=== PATIENT | male | born 1955 ===

== ENCOUNTER 2018-04-26 17:24 | Emergency (ER) | payer BC ==
[2018-04-26 17:45] VITALS: TEMP 98.4; O2SAT 98; BMI 21.7
[2018-04-26] MEDS ORDERED: Sodium Chloride 0.9% 1,000 ML IV STA (18:11)
--- NOTE | 2018-04-26 18:23 | ED PDOC ---
HPI: Abdomen Time Seen by Provider: 04/26/18 17:50 Chief Complaint (Nursing): Abdominal Pain Chief Complaint (Provider): Abdominal Pain, Diarrhea History Per: Patient History/Exam Limitations: no limitations Onset/Duration Of Symptoms: Days (x4) Outside of [place] travel?: No Current Symptoms Are (Timing): Still Present Additional Complaint(s): 63 year old male with no pmhx presents to the ED for evaluation of diffuse abdominal pain and watery, sometimes black diarrhea for the past four days associated with nausea. Patient also reports having intermittent rectal bleeding for the past year. He notes having multiple colonoscopies, but cannot remember the results as it was "years ago." Denies fever, hematochezia, bright red blood, vomiting, and recent travel. PMD: none provided Past Medical History Reviewed: Historical Data, Nursing Documentation, Vital Signs Vital Signs: Last Vital Signs Temp 98.4 F 04/26/18 17:44 Pulse 104 H 04/26/18 17:44 Resp 16 04/26/18 17:44 BP 131/74 04/26/18 17:44 Pulse Ox 98 04/26/18 17:44 - Medical History PMH: No Chronic Diseases - Surgical History Other surgeries: several colonoscopies - Family History Family History: States: Unknown Family Hx - Social History Current smoker - smoking cessation education provided: No Alcohol: None Drugs: Denies - Allergies Allergies/Adverse Reactions: Allergies Allergy/AdvReac Type Severity Reaction Status Date / Time No Known Allergies Allergy Verified 04/26/18 18:10 Review of Systems ROS Statement: Except As Marked, All Systems Reviewed And Found Negative Constitutional: Negative for: Fever Gastrointestinal: Positive for: Nausea, Abdominal Pain (diffuse), Diarrhea (watery and sometimes black), Other (intermittent rectal bleeding). Negative for: Vomiting, Hematochezia Physical Exam - Reviewed Nursing Documentation Reviewed: Yes Vital Signs Reviewed: Yes - Physical Exam Appears: Positive for: No Acute Distress Head Exam: Positive for: ATRAUMATIC, NORMOCEPHALIC Skin: Positive for: Normal Color, Warm Eye Exam: Positive for: Normal appearance ENT: Positive for: Normal ENT Inspection Neck: Positive for: Normal, Painless ROM, Supple Cardiovascular/Chest: Positive for: Regular Rate, Rhythm Respiratory: Positive for: Normal Breath Sounds. Negative for: Respiratory Distress Gastrointestinal/Abdominal: Positive for: Soft, Tenderness (tenderness to palpation diffusely ). Negative for: Guarding, Rebound Back: Positive for: Normal Inspection Rectal: Positive for: Normal Exam, Other (stool color: light brown) Extremity: Positive for: Normal ROM Neurologic/Psych: Positive for: Alert, Oriented (x3) Comments: Rectal Marketing Assistant Manager: GERARD Merrill - ECG O2 Sat by Pulse Oximetry: 98 (RA) Pulse Ox Interpretation: Normal Medical Decision Making Medical Decision Making: A/P: 63 year old male presenting with diffuse abdominal pain and diarrhea --Symptoms currently non-specific and may represent PUD, gastritis, diverticular disease, amongst others not listed. Initial Plan: --CT abd/pelvis PO&IV contrast --Bilirubin, direct --CMP --Lipase --CBC with differential --Normal saline IV --Protonix Inj 40mg IVP --Zofran 4mg IVP --Occult blood, stool --Urinalysis 1900 Patient care endorse to Dr. Grace pending workup and reevaluation. Scribe Attestation: Documented by Helen Drake, acting as a scribe for Joaquin Muniz MD. Provider Scribe Attestation: All medical record entries made by the Scribe were at my direction and personally dictated by me. I have reviewed the chart and agree that the record accurately reflects my personal performance of the history, physical exam, medical decision making, and the department course for this patient. I have also personally directed, reviewed, and agree with the discharge instructions and disposition. Disposition - Clinical Impression Clinical Impression: Diarrhea - Patient ED Disposition Is Patient to be Admitted: Transfer of Care - Disposition Disposition: Transfer of Care Disposition Time: 19:00 Condition: STABLE Forms: [facility] [employer] [facility] ([place]) Patient Signed Over To: Erlinda Grace Handoff Comments: pending workup and re-eval
--- NOTE | 2018-04-26 19:10 | ED PDOC ---
- Laboratory Results Result Diagrams: 04/26/18 19:20 04/26/18 19:20 - ECG O2 Sat by Pulse Oximetry: 98 (RA) Medical Decision Making Medical Decision Makin Patient care endorsed from Dr. Muniz to this provider pending workup and reevaluation. 0040 Pt with improved pain and diarrhea. CT shows colitis. Pt encouraged to follow up with primary medical doctor and to follow up with prop and scenery maker for colonoscopy. return parameters discussed. -------- --------- Scribe Attestation: Documented by Helen Drake, acting as a scribe for Erlinda Grace MD. Provider Scribe Attestation: All medical record entries made by the Scribe were at my direction and personally dictated by me. I have reviewed the chart and agree that the record accurately reflects my personal performance of the history, physical exam, medical decision making, and the department course for this patient. I have also personally directed, reviewed, and agree with the discharge instructions and d isposition. Disposition - Clinical Impression Clinical Impression: Diarrhea - POA Present On Arrival: None - Disposition Referrals: Edgardo Viveros MD [Staff Provider] - Disposition: Routine/Home Disposition Time: 00:40 Condition: STABLE Additional Instructions: Increase water intake while diarrhea persists to prevent dehydration. Follow up with primary medical doctor and the prop and scenery maker. Return to the emergency department if symptoms worsen or if new symptoms develop. Instructions: Diarrhea and Traveler's Diarrhea, Adult (DC) Forms: [employer] (Welsh), [facility] ED School/Work Excuse Print Language: SERBIAN
[2018-04-26 19:53] LABS: BASO % 0.1 % (0.0-2.0); EOS % 0.1 % (0.0-4.0); HEMOGLOBIN 12.2 g/dL (12.0-18.0); LYMPH # 0.4 K/uL (1.0-4.3); MEAN CORPUSCULAR HEMOGLOBIN 27.5 pg (27.0-31.0); MEAN CORPUSCULAR HGB CONC 33.5 g/dL (33.0-37.0); MEAN PLATELET VOLUME 8.6 fl (7.2-11.7); MONO # 0.5 K/uL (0.0-0.8); MONO % 12.3 % (0.0-10.0); NEUT # 3.1 K/uL (1.8-7.0); NEUT % 77.5 % (50.0-75.0); RBC 4.43 Mil/uL (4.40-5.90); RED CELL DISTRIBUTION WIDTH 17.9 % (11.5-14.5)
[2018-04-26 20:01] LABS: ALBUMIN 3.9 g/dL (3.5-5.0); ALT/SGPT 26 U/L (21-72); AST/SGOT 37 U/L (17-59); BILIRUBIN,DIRECT 0.1 mg/ml (0.0-0.4); BLOOD UREA NITROGEN 22 mg/dl (9-20); GFR NON-AFRICAN AMERICAN > 60; LIPASE 30 U/L (23-300)
[2018-04-26] MEDS ORDERED: Iohexol 240 (50 ml) ONE (20:03)
[2018-04-26] MEDS ORDERED: Iohexol 240 (50 ml) PO ONE (20:06)
[2018-04-26 21:48] LABS: SQUAMOUS EPITHIAL < 1 /hpf (0-5); URINE BILIRUBIN NEGATIVE (NEGATIVE); URINE BLOOD LARGE (NEGATIVE); URINE CLARITY SLIGHTY-CLOUDY (Clear); URINE COLOR YELLOW (YELLOW); URINE GLUCOSE (UA) NEG (NEGATIVE); URINE HYALINE CAST 0-2 /hpf (0-2); URINE LEUKOCYTE ESTERASE NEG Leu/uL (Negative); URINE PROTEIN 30 mg/dL (NEGATIVE); URINE UROBILINOGEN 0.2-1.0 mg/dL (0.2-1.0)
[2018-04-26] MEDS ORDERED: Sodium Chloride 0.9% 50 ML IV ONE (22:58)
[2018-04-26] MEDS ORDERED: Iohexol 300 100 ML IJ ONE (22:58)
[2018-04-27 00:54] VITALS: BP 118/69; PULSE 89; RESP 18
--- NOTE | 2018-04-27 15:06 | CT ---
Date of service: 2018-04-26 23:06:51 PROCEDURE: CT Abdomen and Pelvis HISTORY: Diffuse abdominal pain and rectal bleeding. COMPARISON: None. TECHNIQUE: Contiguous axial images of the abdomen and pelvis. Oral contrast was administered. No IV contrast given. Coronal and Sagittal reformats generated. Radiation dose: Total exam DLP = 207.92 mGy-cm. This CT exam was performed using one or more of the following dose reduction techniques: Automated exposure control, adjustment of the mA and/or kV according to patient size, and/or use of iterative reconstruction technique. FINDINGS: LOWER THORAX: Nodular scarring seen in the right posterolateral sulcus extending to the pleural surface with some linear scarring seen slightly more anteriorly. Follow-up CT scan at 3 month interval could be performed to assess stability. Centrilobular emphysematous changes are present. There is a small calcified granuloma also noted in the anterior aspect right lower lung field near the major fissure. Minimal linear scarring also present in the middle lobe region. Heart size within range of normal. No significant pericardial effusion. There is a tiny hiatal hernia. LIVER: Liver exhibits normal size. Mild diffuse fatty hepatic infiltration felt be present. No obvious hepatic mass collection or calcification. GALLBLADDER AND BILE DUCTS: Gallbladder is physiologically distended. No evidence of intraluminal gallbladder calculi.. PANCREAS: Unremarkable. No mass. No ductal dilatation. SPLEEN: Spleen exhibits normal size and attenuation pattern without masses collections or calcifications.. ADRENALS: No obvious adrenal lesions.. KIDNEYS AND URETERS: Kidneys demonstrate symmetric nephrograms. No evidence of nephrolithiasis or hydronephrosis. BLADDER: Urinary bladder is in physiologically distended. No evidence of intraluminal urinary bladder calculi. REPRODUCTIVE: Prostate gland measures approximately 3.5 cm in transverse dimension with prostatic calcifications. APPENDIX: Normal retrocecal appendix. BOWEL: Evaluation of bowel is limited due to incomplete opacification. The stomach is incompletely distended with slight thick-walled appearance. There is mild wall thickening of the distal ileum possibly representing a nonspecific ileitis in conjunction with wall thickening of the most of the colon consistent with ileitis and colitis. Rule out inflammatory versus infectious etiologies. The remaining visualized loops of small bowel exhibit relatively normal contour and caliber. No evidence of acute mechanical small bowel obstruction with oral contrast material extending to the level of the rectum. Possible rectal wall thickening. Consider follow-up of colonoscopy following treatment PERITONEUM: Unremarkable. No fluid collection. No free air. LYMPH NODES: Unremarkable. No enlarged lymph nodes. VASCULATURE: Unremarkable. No aortic aneurysm. Mild aortic atherosclerotic calcification or mural plaque present. BONES: No fracture or destructive lesion. OTHER FINDINGS: None. IMPRESSION: Findings are consistent with colitis involving most of the colon and apparent wall thickening of the terminal ileum. Findings could represent inflammatory ileitis/colitis however rule out infectious etiologies. Mild fatty infiltration.
== END 2018-04-27 00:55 | disposition home or self-care (01) ==
LOC: H.ER 17:24
DX: R19.7 Diarrhea, unspecified (principal); K62.5 Hemorrhage of anus and rectum
CPT/HCPCS: 74177; 80053; 81003; 82248; 83690; 85025; 96374; 96375; 99283; C9113; G0328; J2405; J7030; Q9966; Q9967

== ENCOUNTER 2018-06-07 19:54 | Emergency (ER) | payer BC ==
[2018-06-07 19:54] VITALS: BMI 21.7
[2018-06-07] MEDS ORDERED: Promethazine/Cod 6.25mg-10mg/5ml Syr UD PO STA (20:28)
[2018-06-07] MEDS ORDERED: Promethazine/Cod 6.25mg-10mg/5ml Syr UD ONE (20:36)
[2018-06-07 20:39] LABS: ABG ALLEN TEST YES; ARTERIAL BLOOD GAS O2 SAT 100.2 % (95-98); ARTERIAL BLOOD GAS PCO2 34 mm/Hg (35-45); ARTERIAL BLOOD GAS PH 7.45 (7.35-7.45); ARTERIAL BLOOD GAS PO2 79 mm/Hg (80-100); ARTERIAL BLOOD GAS TCO2 24.6 mmol/L (22-28)
--- NOTE | 2018-06-07 20:48 | ED PDOC ---
HPI: CCC, URI, Sore Throat Time Seen by Provider: 06/07/18 20:08 Chief Complaint (Nursing): Abdominal Pain Chief Complaint (Provider): Cough History Per: Patient History/Exam Limitations: no limitations Onset/Duration Of Symptoms: Days (2x weeks) Current Symptoms Are (Timing): Still Present Associated Symptoms: Cough, Other (shortness of breath, dyspnea on exertion, bod yaches, chest pain, progressive malaise and fatigue). denies: Sputum Severity: Moderate Additional Complaint(s): 63 year old male (heavy smoker) with no pertinent past medical history presents to the ED for an evaluation of a non-productive cough ongoing for 2x weeks. Patient reports having associated shortness of breath, bodyaches, chest pain, dyspnea on exertion, and progressive malaise and fatigue. Patient states that it hurts a lot in the lower ribs and back when he coughs. Patient denies taking any medication for the pain. Patient reports using albuterol in the past for chest tightness, however he has no chest tightness presently. Patient reports that he is currently having a workup for a rectal bleed (recent colonoscopy). PMD: Fabricio Naranjo MD Past Medical History Reviewed: Historical Data, Nursing Documentation, Vital Signs Vital Signs: Last Vital Signs Temp 97.5 F L 06/07/18 19:58 Pulse 88 06/07/18 19:58 Resp 16 06/07/18 19:58 BP 172/87 H 06/07/18 19:58 Pulse Ox 98 06/07/18 19:58 TYREL Report Viewed: Yes - Medical History PMH: No Chronic Diseases - Surgical History Other surgeries: colonoscopy, had 3 polyps removed. - Family History Family History: States: No Known Family Hx - Social History Current smoker - smoking cessation education provided: Yes (heavy) Alcohol: Occasional Drugs: Cannabis - Immunization History Hx Tetanus Toxoid Vaccination: No Hx Influenza Vaccination: No Hx Pneumococcal Vaccination: No - Home Medications Home Medications: Ambulatory Orders Medication Instructions Recorded Albuterol 0.083% [Albuterol 3 ml IH Q4 PRN #50 neb 06/07/18 Sulfate 3 Ml] Albuterol HFA [Ventolin HFA 90 2 puff IH Q4H PRN #1 inh 06/07/18 mcg/actuation (8 g)] Azithromycin [Zithromax] 250 mg PO DAILY #6 dose 06/07/18 Prednisone 50 mg PO DAILY #4 tablet 06/07/18 Promethazine DM [Phenergan DM 10 ml PO Q6 PRN #120 ml 06/07/18 Syrup] - Allergies Allergies/Adverse Reactions: Allergies Allergy/AdvReac Type Severity Reaction Status Date / Time No Known Allergies Allergy Verified 04/26/18 18:10 Review of Systems ROS Statement: Except As Marked, All Systems Reviewed And Found Negative Constitutional: Positive for: Malaise (and fatigue), Other (bodyaches) Cardiovascular: Positive for: Chest Pain, Other (lower rib pain) Respiratory: Positive for: Cough, Shortness of Breath, SOB with Exertion. Negative for: Sputum Musculoskeletal: Positive for: Back Pain (lower back pain) Physical Exam - Reviewed Nursing Documentation Reviewed: Yes Vital Signs Reviewed: Yes - Physical Exam Appears: Positive for: Non-toxic, In Acute Distress (mild respiratory distress). Negative for: Well (cachectic) Head Exam: Positive for: ATRAUMATIC, NORMOCEPHALIC Skin: Positive for: Warm, Dry Eye Exam: Positive for: EOMI, PERRL ENT: Positive for: Pharyngeal Erythema (and soft palate erythema). Negative fo r: Tonsillar Exudate, Tonsillar Swelling Neck: Positive for: Painless ROM, Supple Cardiovascular/Chest: Positive for: Regular Rate, Rhythm. Negative for: Murmur Respiratory: Positive for: Accessory Muscle Use, Rhonchi (faint rhonchi diffusely), Other (poor air movement.) Gastrointestinal/Abdominal: Positive for: Soft. Negative for: Tenderness Back: Positive for: Normal Inspection. Negative for: Decreased ROM Extremity: Positive for: Normal ROM. Negative for: Deformity Lymphatic: Negative for: Adenopathy Neurologic/Psych: Positive for: Alert, Oriented (3x) - Laboratory Results Result Diagrams: 06/07/18 20:48 06/07/18 20:48 Lab Results: pCO2 34 mm/Hg (35-45) L 06/07/18 20:35 pO2 79 mm/Hg (80-100) L 06/07/18 20:35 HCO3 25.0 mmol/L (21-28) 06/07/18 20:35 ABG pH 7.45 (7.35-7.45) 06/07/18 20:35 ABG Total CO2 24.6 mmol/L (22-28) 06/07/18 20:35 ABG O2 Saturation 100.2 % (95-98) H 06/07/18 20:35 ABG Base Excess 0.1 mmol/L (-2.0-3.0) 06/07/18 20:35 Mane Test Yes 06/07/18 20:35 ABG Potassium 3.8 mmol/L (3.6-5.2) 06/07/18 20:35 A-a O2 Difference 28.0 mm/Hg 06/07/18 20:35 Sodium 137.0 mmol/L (132-148) 06/07/18 20:35 Chloride 111.0 mmol/L (98-107) H 06/07/18 20:35 Glucose 98 mg/dL (75-110) 06/07/18 20:35 Lactate 0.6 mmol/L (0.7-2.1) L 06/07/18 20:35 FiO2 21.0 % 06/07/18 20:35 - ECG O2 Sat by Pulse Oximetry: 98 (RA) Pulse Ox Interpretation: Normal Medical Decision Making Medical Decision Makin:08 Initial impression: 63 year old male with a cough. Differential diagnoses include, but are not limited to COPD exacerbation, reactive airway disease, pneu monia, influenza-like illness, viral illness, and bronchitis. Initial plan: * ABG * EKG * b type natriuretic peptide * CMP * LDH * magnesium * phosphorous * troponin I * CBC with differential * PT and PTT * XRay chest 2 views * blood culture * influenza * rapid HIV * phenergan/codeine oral syrup 10 m PO * solumedrol 125 mg IVP * reevaluation Labs unremarkable 2200 On reevaluation pt much more comfortable and reporting feeling better. DW pt findings and plan of care. Will manage as acute bronchitis and COPD exacerbation and discussed at length need for followup. Scribe Attestation: Documented by Erlinda Lara, acting as a scribe for Rosario Solorzano MD. Provider Scribe Attestation: All medical record entries made by the Scribe were at my direction and personally dictated by me. I have reviewed the chart and agree that the record accurately reflects my personal performance of the history, physical exam, medical decision making, and the department course for this patient. I have also personally directed, reviewed, and agree with the discharge instructions and disposition. Disposition - Clinical Impression Clinical Impression: COPD exacerbation, Bronchitis Counseled Patient/Family Regarding: Studies Performed, Diagnosis, Need For Followup, Rx Given, Smoking Cessation - Disposition Referrals: Manny Gonzalez MD [Staff Provider] - Fabricio Naranjo MD [Staff Provider] - Casa Pittman MD [Staff Provider] - Disposition: Routine/Home Disposition Time: 22:21 Condition: IMPROVED Additional Instructions: PLEASE FOLLOWUP WITH YOUR PRIMARY DOCTOR AND ALL YOUR SPECIALISTS THIS WEEK FOR FURTHER MANAGEMENT Prescriptions: Albuterol 0.083% [Albuterol Sulfate 3 Ml] 3 ml IH Q4 PRN #50 neb PRN Reason: asthma Albuterol HFA [Ventolin HFA 90 mcg/actuation (8 g)] 2 puff IH Q4H PRN #1 inh PRN Reason: ASTHMA Azithromycin [Zithromax] 250 mg PO DAILY #6 dose Prednisone 50 mg PO DAILY #4 tablet Promethazine DM [Phenergan DM Syrup] 10 ml PO Q6 PRN #120 ml PRN Reason: SEVERE COUGH ONLY Instructions: Chronic Obstructive Pulmonary Disease (COPD), Including Emphysema, Acute Bronchitis, Adult (DC), Quitting Smoking Print Language: RUSSIAN
[2018-06-07] MEDS ORDERED: Albuterol-Ipratrop 3 mg / 0.5 (3 ml) UD INH STA (20:49)
[2018-06-07 21:01] LABS: BASO # 0.1 K/uL (0.0-0.2); BASO % 1.3 % (0.0-2.0); EOS # 0.2 K/uL (0.0-0.7); EOS % 5.4 % (0.0-4.0); HEMOGLOBIN 10.5 g/dL (12.0-18.0); LYMPH # 1.1 K/uL (1.0-4.3); LYMPH % 26.6 % (20.0-40.0); MEAN CORPUSCULAR HEMOGLOBIN 26.8 pg (27.0-31.0); MEAN CORPUSCULAR HGB CONC 32.7 g/dL (33.0-37.0); MEAN PLATELET VOLUME 7.4 fl (7.2-11.7); MONO # 0.6 K/uL (0.0-0.8); MONO % 14.8 % (0.0-10.0); NEUT # 2.2 K/uL (1.8-7.0); NEUT % 51.9 % (50.0-75.0); NRBC % 0.2 % (0.0-0.0); RBC 3.9 Mil/uL (4.40-5.90); RED CELL DISTRIBUTION WIDTH 16.3 % (11.5-14.5); WHITE BLOOD COUNT 4.2 K/uL (4.8-10.8)
[2018-06-07 21:07] LABS: INR 1.3; PROTHROMBIN TIME 14.5 Seconds (9.8-13.1)
[2018-06-07 21:09] LABS: PARTIAL THROMBOPLASTIN TIME 33.8 Seconds (25.6-37.1)
[2018-06-07 21:18] LABS: ALT/SGPT 29 U/L (21-72); AST/SGOT 32 U/L (17-59); BLOOD UREA NITROGEN 14 mg/dl (9-20); CALCIUM 9.1 mg/dL (8.4-10.2); GFR NON-AFRICAN AMERICAN > 60
[2018-06-07 22:32] VITALS: BP 136/77; PULSE 83; RESP 18; TEMP 99; O2SAT 96
--- NOTE | 2018-06-08 09:04 | CARD ---
APPROVED REPORT Date of service: 06/07/2018 EKG Measurement Heart [id number] <Conclusion> Normal sinus rhythm Normal ECG
--- NOTE | 2018-06-08 10:08 | RAD ---
Date of service: 06/07/2018 HISTORY: Shortness of breath COMPARISON: No prior. TECHNIQUE: Chest PA and lateral FINDINGS: LINES AND TUBES: None. LUNG AND PLEURA: The lungs are hyperinflated and there is peribronchial thickening with chronic changes in both lungs. No focal consolidation. No pleural effusion or pneumothorax. HEART AND MEDIASTINUM: The heart is not enlarged. No aortic atherosclerotic calcifications present. The hilar and mediastinal contours are within normal limits. SKELETAL STRUCTURES: The bony structures are within normal limits for the patient's age. VISUALIZED UPPER ABDOMEN: Normal. OTHER FINDINGS: None. IMPRESSION: No active pulmonary disease. COPD.
== END 2018-06-07 22:30 | disposition home or self-care (01) ==
LOC: H.ER 19:54
DX: J44.0 Chronic obstructive pulmonary disease with (acute) lower respiratory infection (principal); J20.9 Acute bronchitis, unspecified; F17.200 Nicotine dependence, unspecified, uncomplicated; J44.1 Chronic obstructive pulmonary disease with (acute) exacerbation
CPT/HCPCS: 36600; 71046; 80053; 82803; 83615; 83735; 83880; 84100; 84484; 85025; 85610; 85730; 87040; 87390; 87804; 93005; 96374; 99283; J2930

== ENCOUNTER 2018-06-10 19:45 | Observation (INO) | payer BC ==
[2018-06-10 19:45] VITALS: BMI 21.7
[2018-06-10] MEDS ORDERED: Albuterol-Ipratrop 3 mg / 0.5 (3 ml) UD IH STA ×3 (20:18→20:19)
--- NOTE | 2018-06-10 20:24 | ED PDOC ---
HPI: Chest Pain Time Seen by Provider: 06/10/18 20:09 Chief Complaint (Nursing): Chest Pain Chief Complaint (Provider): chest pain History Per: Patient History/Exam Limitations: no limitations Onset/Duration Of Symptoms: Hrs Current Symptoms Are (Timing): Better Exacerbating Factors: Deep Breathing Additional Complaint(s): 63 y/o male no medical history brought in by EMS for evaluation of left-sided chest pain, onset prior to arrival. Patient states he was at the [facility] with friends when he developed the pain, difficulty breathing, and persistent cough. Patient states pain worsened by cough and deep breaths. Patient reports ongoing cough, sometimes productive of white sputum, x 2 weeks; was evaluated in ED for same 3 days ago and prescribed medications including antibiotics. As per , symptoms seemed to be improving until tonight. Denies fever, ear pain, nasal congestion, throat pain, palpitations, leg pain/swelling, recent travel. Aspirin 324mg given in the field Past Medical History Reviewed: Historical Data, Nursing Documentation, Vital Signs Vital Signs: Last Vital Signs Temp 98.4 F 06/10/18 19:47 Pulse 106 H 06/10/18 19:47 Resp 16 06/10/18 19:47 BP 142/79 06/10/18 19:47 Pulse Ox 99 06/10/18 19:47 - Medical History PMH: No Chronic Diseases - Surgical History Surgical History: No Surg Hx - Family History Family History: States: Unknown Family Hx - Living Arrangements Living Arrangements: With Family - Social History Current smoker - smoking cessation education provided: Yes Alcohol: None Drugs: Denies - Immunization History Hx Tetanus Toxoid Vaccination: No Hx Influenza Vaccination: No Hx Pneumococcal Vaccination: No - Home Medications Home Medications: Ambulatory Orders Medication Instructions Recorded Albuterol 0.083% [Albuterol 3 ml IH Q4 PRN #50 neb 06/07/18 Sulfate 3 Ml] Albuterol HFA [Ventolin HFA 90 2 puff IH Q4H PRN #1 inh 06/07/18 mcg/actuation (8 g)] Azithromycin [Zithromax] 250 mg PO DAILY #6 dose 06/07/18 Prednisone 50 mg PO DAILY #4 tablet 06/07/18 Promethazine DM [Phenergan DM 10 ml PO Q6 PRN #120 ml 06/07/18 Syrup] - Allergies Allergies/Adverse Reactions: Allergies Allergy/AdvReac Type Severity Reaction Status Date / Time No Known Allergies Allergy Verified 06/10/18 19:47 Review of Systems ROS Statement: Except As Marked, All Systems Reviewed And Found Negative Cardiovascular: Positive for: Chest Pain Respiratory: Positive for: Cough, Shortness of Breath Physical Exam - Reviewed Nursing Documentation Reviewed: Yes Vital Signs Reviewed: Yes - Physical Exam Appears: Positive for: Well, Non-toxic, Uncomfortable (actively coughing) Head Exam: Positive for: ATRAUMATIC, NORMAL INSPECTION, NORMOCEPHALIC Skin: Positive for: Normal Color Eye Exam: Positive for: Normal appearance ENT: Positive for: Normal ENT Inspection Cardiovascular/Chest: Positive for: Regular Rate, Rhythm Respiratory: Positive for: Normal Breath Sounds Gastrointestinal/Abdominal: Positive for: Normal Exam Back: Positive for: Normal Inspection Extremity: Positive for: Normal ROM Neurologic/Psych: Positive for: Alert, Oriented (x3) - Laboratory Results Result Diagrams: 06/10/18 20:52 06/10/18 20:52 - ECG ECG: Positive for: Viewed By Me (reviewed by ED attending) ECG Rhythm: Positive for: Sinus Tachycardia O2 Sat by Pulse Oximetry: 99 Pulse Ox Interpretation: Normal - Progress ED Course And Treament: -cbc -cmp -lactic acid -blood cx -troponin -bnp -duoneb x 3 -IV solumedrol -IV NS bolus -ekg -cxr EXAM: CR Chest, 1 View. CLINICAL HISTORY: Cough, chest pain, sob COMPARISON: CR\SD - CHEST TWO VIEWS (PA/LAT) - 06/07/2018 08:42 PM EST FINDINGS: LUNGS: There are diffusely increased interstitial lung markings consistent with bronchi tis, acute versus chronic. PLEURAL SPACES: No pleural effusion or pneumothorax. MEDIASTINUM: The cardiomediastinal silhouette is within normal limits. BONES: No aggressive appearing osseous lesion seen. IMPRESSION: There are diffusely increased interstitial lung markings consistent with bronchitis, acute versus chronic Case discussed with ED attending Dr. Grace, will admit for chest pain, COPD/bronchitis, failed outpatient treatment. IV zithromax, IV rocephin ordered Case discussed with Dr. Estrada for admission; will repeat lactic acid after IV fluids Disposition - Clinical Impression Clinical Impression: COPD exacerbation, Bronchitis, Chest pain - Patient ED Disposition Is Patient to be Admitted: Yes - Disposition Disposition Time: 22:56 Condition: FAIR
[2018-06-10 20:56] LABS: BASO % 0.7 % (0.0-2.0); EOS # 0.1 K/uL (0.0-0.7); EOS % 1.8 % (0.0-4.0); HEMOGLOBIN 10.4 g/dL (12.0-18.0); LYMPH % 31.8 % (20.0-40.0); MEAN CELL VOLUME 81.5 fl (80.0-94.0); MEAN CORPUSCULAR HGB CONC 33.1 g/dL (33.0-37.0); MEAN PLATELET VOLUME 7.7 fl (7.2-11.7); MONO # 0.7 K/uL (0.0-0.8); MONO % 10.9 % (0.0-10.0); NEUT # 3.5 K/uL (1.8-7.0); NEUT % 54.8 % (50.0-75.0); RBC 3.87 Mil/uL (4.40-5.90); RED CELL DISTRIBUTION WIDTH 16.3 % (11.5-14.5); WHITE BLOOD COUNT 6.3 K/uL (4.8-10.8)
[2018-06-10 21:10] LABS: INR 1.1; PROTHROMBIN TIME 12.6 Seconds (9.8-13.1)
[2018-06-10 21:12] LABS: PARTIAL THROMBOPLASTIN TIME 29.4 Seconds (25.6-37.1)
[2018-06-10 21:26] LABS: ALB/GLOB RATIO 1.1 (1.0-2.1); ALBUMIN 4.1 g/dL (3.5-5.0); ALT/SGPT 28 U/L (21-72); AST/SGOT 46 U/L (17-59); BLOOD UREA NITROGEN 25 mg/dl (9-20); CALCIUM 9.6 mg/dL (8.4-10.2); GFR NON-AFRICAN AMERICAN > 60
[2018-06-10] MEDS ORDERED: Sodium Chloride 0.9% 1,000 ML IV STA ×2 (21:31→22:10)
[2018-06-10] MEDS ORDERED: Albuterol-Ipratrop 3 mg / 0.5 (3 ml) UD ONE (21:33)
[2018-06-10] MEDS ORDERED: Potassium Chloride 20 mEq ER Tab PO ONE ×2 (21:53→22:25)
[2018-06-10] MEDS ORDERED: cefTRIAXone (Rocephin) 1 gm Inj ONE (23:04)
[2018-06-10] MEDS ORDERED: levoFLOXacin 500 mg in D5W 500 MG/100 ML BAG IVPB STA (23:37)
[2018-06-11] MEDS ORDERED: levoFLOXacin 500 mg in D5W 500 MG/100 ML BAG IVPB ONE (00:02)
[2018-06-11] MEDS ORDERED: Influenza Vaccine 60 mcg/0.5 mL SYR (4YR UP) IM ONE (06:00)
[2018-06-11] MEDS ORDERED: Influenza Vaccine (5 YR UP)/PF 60 MCG/0.5 ML SYR IM ONE (06:00)
[2018-06-11 08:15] VITALS: RESP 18
--- NOTE | 2018-06-11 10:00 | CP.PCM.HP ---
Past Patient History - Past Medical History & Family History Past Medical History?: Yes - Past Social History Smoking Status: Heavy Smoker > 10 Cigarettes Daily - PULMONARY Hx Respiratory Disorders: Yes (Bronchitis) - MUSCULOSKELETAL/RHEUMATOLOGICAL Hx Falls: No - GASTROINTESTINAL Other/Comment: Hx of polyps ; proctitis and rectal hemorrhage 05/07/18 - PSYCHIATRIC Hx Substance Use: No - SURGICAL HISTORY Hx Surgeries: Yes Other/Comment: Sx to remove polyps ; colonoscopy - ANESTHESIA Hx Anesthesia: Yes Hx Anesthesia Reactions: No Meds Allergies/Adverse Reactions: Allergies Allergy/AdvReac Type Severity Reaction Status Date / Time No Known Allergies Allergy Verified 06/10/18 19:47 Results - Vital Signs Recent Vital Signs: Last Vital Signs Temp 97.8 F 06/11/18 08:15 Pulse 60 06/11/18 08:15 Resp 18 06/11/18 08:15 BP 122/63 06/11/18 08:15 Pulse Ox 94 L 06/11/18 08:15 - Labs Result Diagrams: 06/10/18 20:52 06/10/18 20:52 Labs: Laboratory Results - last 24 hr 06/10/18 06/10/18 06/10/18 20:52 20:52 20:52 WBC 6.3 RBC 3.87 L Hgb 10.4 L Hct 31.5 L MCV 81.5 MCH 27.0 MCHC 33.1 RDW 16.3 H Plt Count 275 MPV 7.7 Neut % (Auto) 54.8 Lymph % (Auto) 31.8 [place] % (Auto) 10.9 H Eos % (Auto) 1.8 Baso % (Auto) 0.7 Neut # (Auto) 3.5 Lymph # (Auto) 2.0 [place] # (Auto) 0.7 Eos # (Auto) 0.1 Baso # (Auto) 0.0 PT 12.6 INR 1.1 APTT 29.4 Sodium 141 Potassium 3.3 L Chloride 102 Carbon Dioxide 26 Anion Gap 16 BUN 25 H Creatinine 1.1 Est GFR ( Amer) > 60 Est GFR (Non-Af Amer) > 60 Random Glucose 112 H Lactic Acid Calcium 9.6 Total Bilirubin 0.3 AST 46 ALT 28 Alkaline Phosphatase 82 Troponin I < 0.0120 NT-Pro-B Natriuret Pep 47.0 Total Protein 7.8 Albumin 4.1 Globulin 3.7 Albumin/Globulin Ratio 1.1 06/10/18 06/11/18 06/11/18 20:52 00:39 04:10 WBC RBC Hgb Hct MCV MCH MCHC RDW Plt Count MPV Neut % (Auto) Lymph % (Auto) [place] % (Auto) Eos % (Auto) Baso % (Auto) Neut # (Auto) Lymph # (Auto) [place] # (Auto) Eos # (Auto) Baso # (Auto) PT INR APTT Sodium Potassium Chloride Carbon Dioxide Anion Gap BUN Creatinine Est GFR ( Amer) Est GFR (Non-Af Amer) Random Glucose Lactic Acid 2.9 H 1.9 Calcium Total Bilirubin AST ALT Alkaline Phosphatase Troponin I < 0.0120 NT-Pro-B Natriuret Pep Total Protein Albumin Globulin Albumin/Globulin Ratio
--- NOTE | 2018-06-11 10:18 | CARD ---
APPROVED REPORT Date of service: 06/10/2018 EKG Measurement Heart [id number] [place] [id number] <Conclusion> Sinus tachycardia Otherwise normal ECG
[2018-06-11] MEDS ORDERED: MethylPREDNISolone 40 mg Vial IVP SCH (11:00)
[2018-06-11] MEDS ORDERED: methylPREDNISolone 40 MG in Sodium Chloride 0.9% 50 ML IVPB SCH (11:00)
[2018-06-11 12:40] VITALS: PULSE 68
--- NOTE | 2018-06-11 12:52 | RAD ---
Date of service: 06/10/2018 HISTORY: Cough, chest pain, sob COMPARISON: 06/07/2018. FINDINGS: LUNGS: The lungs are hyperinflated and there is peribronchial thickening with chronic changes in both lungs. No focal consolidation. PLEURA: No pleural effusions or pneumothorax. CARDIOVASCULAR: The heart is normal in size. No aortic atherosclerotic calcifications present. OSSEOUS STRUCTURES: Within normal limits for the patient's age. VISUALIZED UPPER ABDOMEN: Normal. OTHER FINDINGS: None. IMPRESSION: No active pulmonary disease. COPD.
[2018-06-11 15:43] VITALS: BP 137/64; TEMP 98.1; O2SAT 95
[2018-06-11 16:09] LABS: ALB/GLOB RATIO 1.1 (1.0-2.1); ALT/SGPT 30 U/L (21-72); AST/SGOT 28 U/L (17-59); BLOOD UREA NITROGEN 19 mg/dl (9-20); CALCIUM 9.6 mg/dL (8.4-10.2); GFR NON-AFRICAN AMERICAN > 60
== END 2018-06-11 18:09 | disposition home or self-care (01) ==
LOC: H.ER 19:45 → H.ERHOLD 22:50 → INTOOBSV 22:50 → H.TEL 06-11 02:02
PROVIDERS: ADMIT Family Medicine; ATTEND Family Medicine
DX: J44.1 Chronic obstructive pulmonary disease with (acute) exacerbation (principal); J44.0 Chronic obstructive pulmonary disease with (acute) lower respiratory infection; J20.9 Acute bronchitis, unspecified; F17.210 Nicotine dependence, cigarettes, uncomplicated; Z23 Encounter for immunization
CPT/HCPCS: 36415; 71045; 80053; 83605; 83880; 84484; 85025; 85610; 85730; 87040; 90674; 93005; 96374; 96375; 96376; 99285; G0008; G0378; J0696; J2920; J2930; J7030